=== PATIENT | female | born 1970 | race Caucasian/White ===

== ENCOUNTER → 2019-05-20 | Outpatient (CLI) | payer OTHER ==
[~2019-05-20] MED LIST: ALBU18HF IH; BECL8.7A INH; LIDOCAINE 1% (MPF) 5 ML VIAL ONE
== END | disposition home or self-care (01) ==
LOC: U/S 10:01
PROVIDERS: ATTEND Specialist
DX: E04.1 Nontoxic single thyroid nodule (principal)
CPT/HCPCS: 10005; 88104; 88313; Z7610